=== PATIENT | female | born 1990 | race Caucasian/White ===

== ENCOUNTER → 2016-12-15 | Outpatient (CLI) | payer BC ==
--- NOTE | 2016-12-16 07:49 | USB ---
Reason for exam: clinical finding. Indicated problem(s): pain in the left breast. Physical Findings: Nurse Summary: Patient complains of left breast upper outer quadrant pain and lump x 2 months (nurse fina). US Breast LT Left breast ultrasound includes all four quadrants, the retroareolar region and axilla. Finding demonstrates no cystic or solid lesion seen. These results were verbally communicated with the patient and result sheet given to the patient on 12/15/16. ASSESSMENT: Negative, BI-RAD 1 RECOMMENDATION: Clinical management of the left breast. Manage on a clinical basis with regard to palpable and pain.
== END | disposition home or self-care (01) ==
LOC: RADUSWWP 15:01
PROVIDERS: ATTEND Obstetrics & Gynecology
DX: N64.4 Mastodynia (principal)

== ENCOUNTER → 2017-05-25 | Outpatient (CLI) | payer BC ==
[2017-05-25 13:20] VITALS: BMI 32.3
== END | disposition home or self-care (01) ==
LOC: MNTWWP 12:56
PROVIDERS: ATTEND Family Medicine
DX: K90.0 Celiac disease (principal)
CPT/HCPCS: 97802

== ENCOUNTER → 2017-08-09 | Outpatient (CLI) | payer BC ==
--- NOTE | 2017-08-09 22:24 | MR ---
MR brain without contrast HISTORY: Dizziness and giddiness, headaches Multiplanar multisequence imaging through the brain No comparisons There is no restricted diffusion. There is no hemorrhage or hydrocephalus. Normal vascular flow voids are noted. Cerebellopontine angles, corpus callosum, pituitary, cervical medullary junction are norm al. The orbits show symmetric appearance. Inflammatory changes present within the ethmoid air cells, sphenoid sinus and maxillary sinus. Brain signal is maintained. IMPRESSION: Sinus disease.
== END ==
LOC: RADMRIMAIN 21:16
PROVIDERS: ATTEND Family Medicine
DX: J32.9 Chronic sinusitis, unspecified (principal)
CPT/HCPCS: 70551

== ENCOUNTER → 2018-11-05 | Outpatient (CLI) | payer BC ==
--- NOTE | 2018-11-06 09:09 | ECHOF ---
Referral Reason:R00.2 palpitations MEASUREMENTS -------- HEIGHT: 154.9 cm WEIGHT: 68.0 kg BP: RVIDd: 2.1 cm (< 3.3) IVSd: 1.1 cm (0.6 - 1.1) LVIDd: 4.1 cm (3.9 - 5.3) LVPWd: 1.0 cm (0.6 - 1.1) IVSs: 1.6 cm LVIDs: 2.2 cm LVPWs: 1.7 cm LAESV Index (A-L): 23.55 ml/m Ao Diam: 2.6 cm (2.0 - 3.7) AV Cusp: 1.6 cm (1.5 - 2.6) LA Diam: 2.9 cm (2.7 - 3.8) EPSS: 0.1 cm MV E Bright: 1.00 m/s MV DecT: 193 ms MV A Bright: 0.51 m/s MV E/A Ratio: 1.94 RAP: 5.00 mmHg RVSP: 20.41 mmHg MV EF SLOPE: 117.78 mm/s (70 - 150) MV EXCURSION: 1.92 cm (> 18.000) FINDINGS -------- Sinus rhythm. The left ventricular size is normal. Left ventricular wall thickness is normal. There is normal g lobal left ventricular contractility. Overall left ventricular systolic function is normal with, an EF between 60 - 65 %. The diastolic filling pattern is normal for the age of the patient. The right ventricle is normal in size. Left atrium is normal size by volume. The right atrial size is normal. Interatrial and interventricular septum intact. The aortic valve is trileaflet and appears structurally normal. There is no evidence of aortic regu rgitation. There is no evidence of aortic stenosis. There is trace to mild mitral regurgitation. Trace tricuspid regurgitation present. There is no evidence of pulmonary hypertension. The right ventricular systolic pressure, as measured by Doppler, is 20.41mmHg. Trace/mild (physiologic) pulmonic regurgitation. The aortic root size is normal. The inferior vena cava was not well visualized. There is no pericardial effusion. CONCLUSIONS -------- 1. Sinus rhythm. 2. The left ventricular size is normal. 3. Left ventricular wall thickness is normal. 4. There is normal global left ventricular contractility. 5. Overall left ventricular systolic function is normal with, an EF between 60 - 65 %. 6. The diastolic filling pattern is normal for the age of the patient. 7. The right ventricle is normal in size. 8. Left atrium is normal size by volume. 9. The right atrial size is normal. 10. Interatrial and interventricular septum intact. 11. The aortic valve is trileaflet and appears structurally normal. 12. There is no evidence of aortic regurgitation. 13. There is no evidence of aortic stenosis. 14. There is trace to mild mitral regurgitation. 15. Trace tricuspid regurgitation present. 16. There is no evidence of pulmonary hypertension. 17. The right ventricular systolic pressure, as measured by Doppler, is 20.41mmHg. 18. Trace/mild (physiologic) pulmonic regurgitation. 19. The aortic root size is normal. 20. The inferior vena cava was not well visualized. 21. There is no pericardial effusion. [employer]IC: Elizabeth Booth RDCS
== END | disposition home or self-care (01) ==
LOC: RADECHMAIN 13:02
PROVIDERS: ATTEND Family Medicine
DX: I34.0 Nonrheumatic mitral (valve) insufficiency (principal)
CPT/HCPCS: 93306

== ENCOUNTER 2019-03-21 11:08 | Emergency (ER) | payer BC ==
[2019-03-21 11:46] VITALS: TEMP 98.3
[2019-03-21 15:09] LABS: Basophils % (A) 0 %; Eosinophils % (A) 0 %; HCT 36.5 % (34.0-46.0); HGB 12.5 gm/dL (11.4-16.0); Lymphocytes # (A) 1.3 k/uL (1.0-4.8); Lymphocytes % (A) 12 %; MCH 29.9 pg (25.0-35.0); MCHC 34.2 g/dL (31.0-37.0); MCV 87.6 fL (80.0-100.0); Mean Platelet Volume 9.7; Monocytes # (A) 0.3 k/uL (0-1.0); Monocytes % (A) 2 %; Neutrophils % (A) 84 %; Platelet Count 191 k/uL (150-450); RBC 4.17 m/uL (3.80-5.40); WBC 10.6 k/uL (3.8-10.6)
[2019-03-21 15:13] LABS: Appearance,Urine Clear (Clear); Bilirubin,Urine Negative (Negative); Blood,Urine Negative (Negative); Color,Urine Light Yellow; Glucose,Urine (UA) Negative (Negative); Ketones,Urine 2+ (Negative); Leukocyte Esterase,Urine Negative (Negative); Nitrite,Urine Negative (Negative); Protein,Urine Negative (Negative); Specific Gravity,Urine 1.008 (1.001-1.035); Urobilinogen,Urine <2.0 mg/dL (<2.0)
[2019-03-21 15:18] LABS: ALT 13 U/L (4-34); AST 24 U/L (14-36); African American GFR (CKD) >90 (>60 ml/min/1.73 sqM); Alkaline Phosphatase 58 U/L (38-126); Anion Gap 7 mmol/L; Blood Urea Nitrogen 6 mg/dL (7-17); Calcium 9.4 mg/dL (8.4-10.2); Carbon Dioxide 23 mmol/L (22-30); Chloride 107 mmol/L (98-107); Glucose 82 mg/dL (74-99); Non-African American GFR(CKD) >90 (>60 ml/min/1.73 sqM); Sodium 137 mmol/L (137-145); Total Bilirubin 0.4 mg/dL (0.2-1.3); Total Protein 7.2 g/dL (6.3-8.2)
--- NOTE | 2019-03-21 15:18 | ED ---
General Adult HPI - General Chief complaint: Dizziness Stated complaint: 20wks preg, dizzy Source: patient Mode of arrival: ambulatory Limitations: no limitations - History of Present Illness Initial comments: The patient is a 29-year-old female with past medical history of celiac disease who presents to the emergency room and with reported presyncopal sensation. She is currently 20 weeks . She states that over the past 2 weeks she has had intermittent episodes of lightheadedness. She will get short of breath and had palpitations. She will rest and the sensation will go away. It was infrequent until recently. States that she had multiple episodes today. Admits to eating and drinking. Denies any fevers or chills. No chest pain. Denies shortness of breath currently. No history of DVT or PE. Denies any abdominal pain. No vaginal bleeding or discharge. She had similar symptoms last summer. She wore a Holter monitor and had an echo. She states that everything was normal and the symptoms ended up stopping. She denies any issues with the pr evious . No recent medication changes. Denies dysuria, hematuria or difficult voiding. Denies that her symptoms are positional in nature. No family history of cardiac disease. There are no other alleviating, precipitating or modifying factors - Related Data Home Medications Medication Instructions Recorded Confirmed Doxylamine Succinate [Unisom] 1 tab PO DAILY 03/21/19 03/21/19 Pnv No.95/Ferrous Fum/Folic AC 1 tab PO DAILY 03/21/19 03/21/19 [ Multivitamin Tablet] Allergies Allergy/AdvReac Type Severity Reaction Status Date / Time No Known Allergies Allergy Verified 03/21/19 17:07 Review of Systems ROS Statement: Those systems with pertinent positive or pertinent negative responses have been documented in the HPI. ROS Other: All systems not noted in ROS Statement are negative. Past Medical History Past Medical History: No Reported History History of Any Multi-Drug Resistant Organisms: None Reported Past Surgical History: Section Past Psychological History: No Psychological Hx Reported Smoking Status: Never smoker Past Alcohol Use History: None Reported Past Drug Use History: None Reported General Exam Limitations: no limitations Course Vital Signs 03/21/19 03/21/19 03/21/19 11:43 13:00 14:00 Temperature 98.3 F Pulse Rate 101 H Pulse Rate [ Left Sitting Radial] Pulse Rate [ Left Standing Radial] Pulse Rate [ Left Supine Radial] Respiratory 19 20 20 Rate Blood Pressure 126/82 Blood Pressure [Left Arm Sitting] Blood Pressure [Left Arm Standing] Blood Pressure [Left Arm Supine] O2 Sat by Pulse 100 Oximetry 03/21/19 03/21/19 03/21/19 14:16 15:41 16:39 Temperature Pulse Rate 77 77 Pulse Rate [ 96 Left Sitting Radial] Pulse Rate [ 100 Left Standing Radial] Pulse Rate [ 98 Left Supine Radial] Respiratory 18 20 Rate Blood Pressure 118/76 109/77 Blood Pressure 121/81 [Left Arm Sitting] Blood Pressure 120/78 [Left Arm Standing] Blood Pressure 112/73 [Left Arm Supine] O2 Sat by Pulse 100 100 Oximetry EKG Findings - EKG Comments: EKG Findings:: EKG demonstrates normal sinus rhythm with a ventricular rate of 78. DE interval 148. QRS 80. QTC of 430. No acute ST segment elevations or depressions concerning for ischemic changes Medical Decision Making - Medical Decision Making Upon arrival the patient was placed into room 18. A thorough history and physical exam was performed. I did complete orthostatics which were negative. Laboratory studies were conducted and 12-lead EKG was performed. Laboratory studies are essentially unremarkable. Urinalysis shows 2+ ketones. I did p erform a bedside ultrasound which demonstrated an intrauterine with positive movement and heart tones. I discussed diagnosis, differential treatment options. This time the patient will be discharged and sent to labor and delivery for an NST. She needs to [facility] with [facility] for repeat Holter monitoring and echo. If the patient has any new or worsening symptoms she should return to the emergency room. The patient was then discharged upstairs to labor and delivery - Lab Data Result diagrams: 03/21/19 14:41 03/21/19 14:41 Lab Results 03/21/19 03/21/19 03/21/19 Range/Units 14:41 14:41 14:41 WBC 10.6 (3.8-10.6) k/uL RBC 4.17 (3.80-5.40) m/uL Hgb 12.5 (11.4-16.0) gm/dL Hct 36.5 (34.0-46.0) % MCV 87.6 (80.0-100.0) fL MCH 29.9 (25.0-35.0) pg MCHC 34.2 (31.0-37.0) g/dL RDW 13.0 (11.5-15.5) % Plt Count 191 (150-450) k/uL Neutrophils % 84 % Lymphocytes % 12 % Monocytes % 2 % Eosinophils % 0 % Basophils % 0 % Neutrophils # 9.0 H (1.3-7.7) k/uL Lymphocytes # 1.3 (1.0-4.8) k/uL Monocytes # 0.3 (0-1.0) k/uL Eosinophils # 0.0 (0-0.7) k/uL Basophils # 0.0 (0-0.2) k/uL Sodium 137 (137-145) mmol/L Potassium 4.0 (3.5-5.1) mmol/L Chloride 107 (98-107) mmol/L Carbon Dioxide 23 (22-30) mmol/L Anion Gap 7 mmol/L BUN 6 L (7-17) mg/dL Creatinine 0.47 L (0.52-1.04) mg/dL Est GFR (CKD-EPI)AfAm >90 (>60 ml/min/1.73 sqM) Est GFR (CKD-EPI)NonAf >90 (>60 ml/min/1.73 sqM) Glucose 82 (74-99) mg/dL Calcium 9.4 (8.4-10.2) mg/dL Total Bilirubin 0.4 (0.2-1.3) mg/dL AST 24 (14-36) U/L ALT 13 (4-34) U/L Alkaline Phosphatase 58 (38-126) U/L Troponin I <0.012 (0.000-0.034) ng/mL Total Protein 7.2 (6.3-8.2) g/dL Albumin 4.0 (3.5-5.0) g/dL Urine Color Urine Appearance (Clear) Urine pH (5.0-8.0) Ur Specific [place] (1.001-1.035) Urine Protein (Negative) Urine Glucose (UA) (Negative) Urine Ketones (Negative) Urine Blood (Negative) Urine Nitrite (Negative) Urine Bilirubin (Negative) Urine Urobilinogen (<2.0) mg/dL Ur Leukocyte Esterase (Negative) 03/21/19 Range/Units 14:41 WBC (3.8-10.6) k/uL RBC (3.80-5.40) m/uL Hgb (11.4-16.0) gm/dL Hct (34.0-46.0) % MCV (80.0-100.0) fL MCH (25.0-35.0) pg MCHC (31.0-37.0) g/dL RDW (11.5-15.5) % Plt Count (150-450) k/uL Neutrophils % % Lymphocytes % % Monocytes % % Eosinophils % % Basophils % % Neutrophils # (1.3-7.7) k/uL Lymphocytes # (1.0-4.8) k/uL Monocytes # (0-1.0) k/uL Eosinophils # (0-0.7) k/uL Basophils # (0-0.2) k/uL Sodium (137-145) mmol/L Potassium (3.5-5.1) mmol/L Chloride (98-107) mmol/L Carbon Dioxide (22-30) mmol/L Anion Gap mmol/L BUN (7-17) mg/dL Creatinine (0.52-1.04) mg/dL Est GFR (CKD-EPI)AfAm (>60 ml/min/1.73 sqM) Est GFR (CKD-EPI)NonAf (>60 ml/min/1.73 sqM) Glucose (74-99) mg/dL Calcium (8.4-10.2) mg/dL Total Bilirubin (0.2-1.3) mg/dL AST (14-36) U/L ALT (4-34) U/L Alkaline Phosphatase (38-126) U/L Troponin I (0.000-0.034) ng/mL Total Protein (6.3-8.2) g/dL Albumin (3.5-5.0) g/dL Urine Color Light Yellow Urine Appearance Clear (Clear) Urine pH 6.0 (5.0-8.0) Ur Specific [place] 1.008 (1.001-1.035) Urine Protein Negative (Negative) Urine Glucose (UA) Negative (Negative) Urine Ketones 2+ H (Negative) Urine Blood Negative (Negative) Urine Nitrite Negative (Negative) Urine Bilirubin Negative (Negative) Urine Urobilinogen <2.0 (<2.0) mg/dL Ur Leukocyte Esterase Negative (Negative) Disposition Clinical Impression: Pre-syncope Disposition: HOME SELF-CARE Condition: Stable Instructions (If sedation given, give patient instructions): Dizziness (ED) Additional Instructions: Please follow-up with your primary care doctor in 2-4 days. Return to the emergency department for any new worsening symptoms Is patient prescribed a controlled substance at d/c from ED?: No Referrals: Gian Grider MD [Primary Care Provider] - 1-2 days Time of Disposition: 16:26
[2019-03-21 15:44] VITALS: PULSE 77
[2019-03-21 16:39] VITALS: BP 109/77; RESP 20
== END 2019-03-21 16:41 | disposition home or self-care (01) ==
LOC: EC 11:08
DX: O99.89 Other specified diseases and conditions complicating pregnancy, childbirth and the puerperium (principal); R55 Syncope and collapse; R42 Dizziness and giddiness; R06.02 Shortness of breath; Z3A.20 20 weeks gestation of pregnancy
CPT/HCPCS: 36415; 80053; 81003; 84484; 85025; 93005; 99284

== ENCOUNTER 2019-03-21 16:55 | Outpatient (CLI) | payer BC ==
[2019-03-21 17:47] VITALS: BP 128/62; PULSE 97; RESP 16; TEMP 97.9
--- NOTE | 2019-03-25 13:05 | P.MSEPDOC ---
Presenting Problems - Arrival Data Date of Arrival on Unit: 03/21/19 Time of Arrival on Unit: 16:55 Mode of Transport: Ambulatory - Complaint OB-Reason for Admission/Chief Complaint: Other Comment: pt sent from ER for OB clearance, pt seen for dizziness and nausea and cleared for d/c by ER Medical History - Information : 2 Para: 1 Term: 1 : 0 Abortions: Spontaneous or Elective: 0 Number of Living Children: 1 - Gestational Age Gestational Age by DAMEON (wks/days): 20 Weeks and 4 Days - History Complications: Prior Review of Systems - Review of Systems Constitutional: No problems Breast: No problems ENT: No problems Cardiovascular: No problems Respiratory: No problems Gastrointestinal: No problems Genitourinary: No problems Musculoskeletal: No problems Neurological: No problems, Dizziness Skin: No problems Comment: denies dizziness and nausea at this time Vital Signs - Temperature Temperature: 97.9 F Temperature Source: Temporal Artery Scan - Pulse Right Sitting Pulse Rate: 97 Pulse Assessment Method: Automatic Cuff - Respirations Respiratory Rate: 16 Oxygen Delivery Method: Room Air - Blood Pressure Right Arm Blood Pressure: 128/62 Blood Pressure Mean: 84 Blood Pressure Source: Automatic Cuff Medical Screen Scoring (Pre) - Cervical Exam Dilation: Exam Deferred Effacement: Exam Deferred Membranes: Intact - Uterine Contractions Frequency: N/A Duration: N/A Intensity: N/A - Maternal Vital Signs Maternal Temperature: N/A Maternal Blood Pressure: N/A Signs of Preeclampsia: N/A Maternal Respirations: N/A - Maternal Trauma Maternal Trauma: N/A - Assessment - Baby A Baseline FHR: 140 - Total Score - Baby A Total Score - Baby A: 0 - Total Score - Baby B Total Score - Baby B: 0 - Total Score - Baby C Total Score - Baby C: 0 - Level of Risk - Baby A Level of Risk - Baby A: Low (0-5) - Level of Risk - Baby B Level of Risk - Baby B: Low (0-5) - Level of Risk - Baby C Level of Risk - Baby C: Low (0-5) Physician Notification (Pre) - Physician Notified Physician Notified Date: 03/21/19 Physician Notified Time: 17:29 New Order Received: Yes (d/c home) Disposition - Disposition OB Disposition: Discharge to home, Written follow up instructions reviewed Discharge Date: 03/21/19 Discharge Time: 17:35 I agree with the RN Medical Screening Exam: Yes Risk & Benefit of care provided described in d/c instruction: Yes Diagnosis: DIZZINESS AND GIDDINESS
== END 2019-03-21 17:35 | disposition home or self-care (01) ==
LOC: FBPOP 16:55
PROVIDERS: ATTEND Obstetrics & Gynecology
DX: O99.89 Other specified diseases and conditions complicating pregnancy, childbirth and the puerperium (principal); R42 Dizziness and giddiness; Z3A.20 20 weeks gestation of pregnancy
CPT/HCPCS: 99213

== ENCOUNTER → 2019-04-19 | Outpatient (CLI) | payer BC ==
[2019-04-19 11:11] LABS: HCT 37.3 % (34.0-46.0); HGB 11.9 gm/dL (11.4-16.0); MCHC 32.1 g/dL (31.0-37.0); MCV 90.3 fL (80.0-100.0); Mean Platelet Volume 9.9; Platelet Count 162 k/uL (150-450); RBC 4.12 m/uL (3.80-5.40); RDW 13.4 % (11.5-15.5); WBC 9.9 k/uL (3.8-10.6)
== END | disposition home or self-care (01) ==
LOC: LABWHC1 09:39
PROVIDERS: ATTEND Obstetrics & Gynecology
DX: Z34.82 Encounter for supervision of other normal pregnancy, second trimester (principal)
CPT/HCPCS: 36415; 82950; 85027

== ENCOUNTER → 2019-07-29 | Outpatient (CLI) | payer BC | END | disposition home or self-care (01) | LOC: LABWHC1 10:41 | PROVIDERS: ATTEND Obstetrics & Gynecology | DX: Z11.59 Encounter for screening for other viral diseases (principal) ==

== ENCOUNTER 2019-07-30 06:07 | Inpatient (IN) | payer BC ==
[2019-07-29 12:06] VITALS: BMI 36.6
--- NOTE | 2019-07-29 16:58 | P.HPOB ---
History of Present Illness H&P Date: 07/29/19 Chief Complaint: Repeat cesearan section This patient is a pleasant 29 yr female EDC 08/04/2019 estimated gestational age 39 2/7 weeks who presents to L&D for repeat C/S. Patient had a previous C/S for postdates failure to progress. She desires a repeat C/S. has been uncomplicated. Her BP was low at 23 weeks and her PCP did send her to cardiology but negative evaluation. Also had Influenza A at 27 weeks. Review of Systems Genitourinary: Reports Menstruation: Reports amenorrhea Past Medical History Past Medical History: Pneumonia Additional Past Medical History / Comment(s): Hx vertigo. Pneumonia 03/2019, also flu. currently. History of Any Multi-Drug Resistant Organisms: None Reported Past Surgical History: Section Past Anesthesia/Blood Transfusion Reactions: Motion Sickness Smoking Status: Never smoker Past Alcohol Use History: None Reported Past Drug Use History: None Reported - Past Family History Father Family Medical History: Cancer Additional Family Medical History / Comment(s): testicular/prostate cancer Medications and Allergies Home Medications Medication Instructions Recorded Confirmed Type Pnv No.95/Ferrous Fum/Folic AC 2 tab PO DAILY 03/21/19 07/29/19 History [ Multivitamin Tablet] Allergies Allergy/AdvReac Type Severity Reaction Status Date / Time gluten Allergy Nausea & Verified 07/29/19 11:52 Vomiting & Diarrhea wheat Allergy Nausea & Verified 07/29/19 11:52 Vomiting & Diarrhea Exam Intake and Output 07/29/19 07/29/19 07/29/19 06:59 14:59 22:59 Other: Weight 87.997 kg - OBG Physical Exam Vulva: both: normal Vagina: normal moisture, no discharge Cervix: no lesion, no discharge Uterus: enlarged (Fundal height is 40cm) Results Labs: O positive, Rubella Immune, RPR-HepB neg, GBS negative. Ultrasounds have been normal. Assessment and Plan Assessment: This is a pleasant 29 yr female 39 2/7 weeks gestation who is presenting for a repeat C/S. I have discussed this surgery and risks: infection, bleeding, possible injury to bowel/bladder/vessels and/or other organs. She understands risk of DVT/PE. All of her questions have been answered and a written consent obtained. (1) 39 weeks gestation of Status: Acute Code(s): Z3A.39 - 39 WEEKS GESTATION OF SNOMED Code(s): 37737561 (2) Previous delivery affecting Status: Acute Code(s): O34.219 - MATERNAL CARE FOR UNSP TYPE SCAR FROM PREVIOUS DEL SNOMED Code(s): 071032502
[2019-07-30] MEDS ORDERED: CITRIC ACID-SODIUM CITRATE 15 ML CUP PO ONE (06:13)
[2019-07-30] MEDS ORDERED: LACTATED RINGERS 1,000 ML IV SCH (06:13)
[2019-07-30] MEDS ORDERED: LACTATED RINGERS 1,000 ML IV ONE (06:13)
[2019-07-30 06:52] LABS: Basophils % (A) 0 %; Eosinophils # (A) 0.1 k/uL (0-0.7); Eosinophils % (A) 1 %; HCT 37.4 % (34.0-46.0); HGB 12.4 gm/dL (11.4-16.0); Lymphocytes % (A) 24 %; MCH 29.9 pg (25.0-35.0); MCHC 33.2 g/dL (31.0-37.0); MCV 90.3 fL (80.0-100.0); Mean Platelet Volume 13.7; Monocytes # (A) 0.4 k/uL (0-1.0); Monocytes % (A) 5 %; Neutrophils # (A) 5.7 k/uL (1.3-7.7); Neutrophils % (A) 69 %; Platelet Count 113 k/uL (150-450); RBC 4.14 m/uL (3.80-5.40); RDW 14.5 % (11.5-15.5); WBC 8.3 k/uL (3.8-10.6)
[2019-07-30] MEDS ORDERED: MORPHINE SULFATE (PF) 0.3 MG/0.3 ML SYR ONE (07:47)
[2019-07-30] MEDS ORDERED: ONDANSETRON 4 MG/2 ML VIAL ONE (07:47)
[2019-07-30] MEDS ORDERED: KETOROLAC 30 MG/ML 1 ML VIAL ONE (07:47)
[2019-07-30] MEDS ORDERED: OXYTOCIN 10 UNIT/ML 1 ML VIAL ONE (07:47)
[2019-07-30] MEDS ORDERED: ONDANSETRON 4 MG/2 ML VIAL IVP PRN ×2 (08:45→08:51)
[2019-07-30] MEDS ORDERED: NALOXONE 0.4 MG/ML 1 ML VIAL IV PRN ×2 (08:45→08:51)
[2019-07-30] MEDS ORDERED: MORPHINE SULFATE 2 MG/ML SYRINGE IVP PRN (08:45)
--- NOTE | 2019-07-30 08:49 | P.OP ---
Date of Procedure: 07/30/19 Preoperative Diagnosis: #1: 39-2/7 weeks . #2: Previous section desires repeat Postoperative Diagnosis: Same Procedure(s) Performed: Repeat low transverse section Anesthesia: spinal Surgeon: Efraín Moody Service Desk Associate #1: Fern Jay Estimated Blood Loss (ml): 600 Pathology: none sent Condition: stable Disposition: observation Indications for Procedure: Please see dictated H&P for intimate details of this patient's admission. In brief summary this is a pleasant 29-year-old 2 para 1 female 39-2/7 weeks gestation who is admitted to labor and delivery for elective repeat section. Patient had a previous section for post dates and failure to progress as requested repeat at this time. Patient understands this surgery and risks and risks of infection, bleeding, possible injury bowel, bladder, vessels, and/or other organs. All the patient's questions are answered and written consent is obtained. Operative Findings: This is a vigorous viable female infant Apgars 8 and 9 delivery time was 0804 hrs. appears grossly normal. Uterus tubes and ovaries appear normal for term gestation. Description of Procedure: This patient is taken to the operating room. She had a Singh catheter placed to straight drain. After the appropriate timeout she sat up and spinal anesthesia is administered without incident. With an adequate level of anesthesia she has abdominal prep and drape. Scalpels and taken the previous Pfannenstiel incision is incised. A second scalpel is taken down the fascia the fascia scored with a knife. Fascial incision extended bilaterally using the Layne scissors. Fascia is then dissected sharply off the rectus muscles. Rectus muscles are the peritoneum was identified and entered sharply. Peritoneal incision extended superior and inferior without difficulty. Bladder blade is then placed. Bladder peritoneum was taken sharply off the lower uterine segment. Scalpels and taken low transverse uterine incision is made. Of note the lower uterine segment is somewhat thin but not terribly so. Using a hemostat I into the uterine cavity bluntly. There is loss of clear fluid. The uterine incision extended bluntly. 's head is then guided through the incision with fundal pressure. Mouth and nares are bulb suctioned. There is a loose nuchal cord which is reduced. Then have deliver the anterior posterior shoulder and rest this infant's body. This is a vigorous viable female Apgars 8 and 9 delivery time was 0804 hrs. After delivery of the the umbilical cord is doubly clamped and cut and appears to be trivascular. The is then handed off to the nurses in attendance. The placenta is manually extracted intact. Uterus then externalized and uterine incision demarcated with Jerry clamps. The uterine incision closed in 0 Vicryl running locked fashion 2 layers. Excellent hemostasis is noted. Parietal peritoneum was then closed using a 3-0 Vicryl. Inspection of the uterus shows normal tubes and ovaries. Excess fluid is removed from the abdomen and pelvis. Uterus placed back into the abdomen. Parietal peritoneum was then closed in 0 Vicryl running fashion. The rectus muscles are pressure 0 Vicryl interrupted fashion. Fascia is then closed using 0 PDS. Fascial incision is intact and hemostatic. Subcutaneous tissues and closed using a 3-0 Vicryl. Skin is and closed using dajuan. All counts correct 3. There are no complications. Infant and mother are taken to the birthing suite in satisfactory condition.
[2019-07-30] MEDS ORDERED: OXYTOCIN 20 UNITS/1000 ML NS 1,000 ML IV SCH (08:51)
[2019-07-30] MEDS ORDERED: IBUPROFEN 600 MG TAB PO PRN (08:51)
[2019-07-30] MEDS ORDERED: ZOLPIDEM 5 MG TAB PO PRN (08:51)
[2019-07-30] MEDS ORDERED: diphenhydrAMINE 25 MG CAP PO PRN (08:51)
[2019-07-30] MEDS ORDERED: ACETAMINOPHEN TAB 325 MG TAB PO PRN (08:51)
[2019-07-30] MEDS ORDERED: diphenhydrAMINE 50 MG/ML 1 ML VIAL IVP PRN (08:51)
[2019-07-30] MEDS ORDERED: SIMETHICONE 80 MG CHEWABLE PO PRN (08:51)
[2019-07-30] MEDS ORDERED: METOCLOPRAMIDE 5 MG/ML 2 ML VIAL IVP PRN (08:51)
[2019-07-30] MEDS ORDERED: LANOLIN CREAM 5 GM TUBE TOPICAL PRN (08:51)
[2019-07-30] MEDS ORDERED: HYDROcodone/APAP 5-325MG 1 EACH TAB PO PRN (08:51)
[2019-07-30] MEDS: SENNOSIDES-DOCUSATE SODIUM 1 EACH TAB PO SCH ×2 (12:15→21:33)
[2019-07-30] MEDS: LACTATED RINGERS 1,000 ML IV SCH ×2 (12:15→21:33)
[2019-07-30] MEDS: diphenhydrAMINE 50 MG/ML 1 ML VIAL IVP PRN ×2 (16:04→23:45)
[2019-07-30] MEDS: KETOROLAC 30 MG/ML 1 ML VIAL IVP PRN (23:45)
[2019-07-31] MEDS: LACTATED RINGERS 1,000 ML IV SCH ×3 (00:51→16:55)
[2019-07-31 01:45] LABS: HIV 2 AB Non-Reactive (Non-Reactive); HIV AB P24 Non-Reactive (Non-Reactive); HIV P24 AG Non-Reactive (Non-Reactive)
--- NOTE | 2019-07-31 06:24 | P.PNOBGPC ---
Subjective - Subjective Patient reports: Reports appetite normal, Reports pain well controlled, Reports ambulating normally : doing well Objective - Vital Signs Latest vital signs: Vital Signs Temp Pulse Resp BP Pulse Ox 07/31/19 05:02 16 07/31/19 04:00 98.1 F 68 16 115/78 96 07/31/19 01:42 16 07/30/19 23:04 98.5 F 77 16 124/81 96 07/30/19 21:20 16 07/30/19 20:23 97 07/30/19 20:00 99.1 F 72 16 130/84 97 07/30/19 18:00 16 07/30/19 17:46 98 07/30/19 16:00 97.9 F 70 15 137/77 07/30/19 13:00 16 07/30/19 12:00 98.0 F 68 16 127/80 96 07/30/19 11:46 16 96 07/30/19 10:31 97.1 F L 62 16 133/81 100 07/30/19 10:01 54 L 16 126/72 98 07/30/19 09:46 16 99 07/30/19 09:31 96.7 F L 81 16 118/79 99 07/30/19 09:16 63 16 143/89 98 07/30/19 09:01 67 17 124/65 95 07/30/19 08:46 64 17 117/60 96 07/30/19 08:31 96.5 F L 72 17 116/81 99 Intake and Output 07/30/19 07/30/19 07/31/19 14:59 22:59 06:59 Intake Total 1000 Output Total 936 143 3446 Balance 700 -300 -1800 Intake: IV 1000 Output: Urine 602 867 5820 Uretheral (Singh) 300 900 Other: Voiding Method Indwelling Catheter # Voids 0 - Exam Lungs: bilateral: normal Chest: Normal S1, Normal S2 Extremities: Present: normal Abdomen: Present: normal appearance, soft. Absent: distention, tenderness Incision: Present: normal, dry, intact Uterus: Present: normal, firm - Labs Labs: Abnormal Lab Results - Last 24 Hours (Table) 07/30/19 Range/Units 06:40 Plt Count 113 L (150-450) k/uL Assessment and Plan Assessment: day #1. Patient is resting without complaints. She has been unable to urinate and has had to be straight cathed several times. This most likely secondary to the Duramorph. Vital signs are stable and she is afebrile. Uterus is firm nontender and her incision is intact and dry. CBC is pending at this time. Plan today is to encourage her to ambulate, allow her to shower, check a CBC and continue to observe closely for urination, this should resolve as the Duramorph wears off. (1) 39 weeks gestation of Current Visit: No Status: Acute Code(s): Z3A.39 - 39 WEEKS GESTATION OF SNOMED Code(s): 91642707 (2) Previous delivery affecting Current Visit: No Status: Acute Code(s): O34.219 - MATERNAL CARE FOR UNSP TYPE SCAR FROM PREVIOUS DEL SNOMED Code(s): 509772986
[2019-07-31] MEDS: KETOROLAC 30 MG/ML 1 ML VIAL IVP PRN ×2 (06:30→19:11)
[2019-07-31 06:44] LABS: HGB 11.5 gm/dL (11.4-16.0); MCH 28.8 pg (25.0-35.0); MCHC 31.9 g/dL (31.0-37.0); MCV 90.5 fL (80.0-100.0); Mean Platelet Volume 13.7; Platelet Count 90 k/uL (150-450); RBC 3.98 m/uL (3.80-5.40); RDW 14.4 % (11.5-15.5); WBC 12.6 k/uL (3.8-10.6)
[2019-07-31 07:10] LABS: Lymphocytes # (M) 1.01 k/uL (1.0-4.8); Neutrophils # (M) 11.09 k/uL (1.3-7.7); Neutrophils % (M) 88 %; Nucleated Red Blood Cells 0 /100 WBC (0-0); Total Cells Counted 100
[2019-07-31 07:11] LABS: Large Platelets Present
--- NOTE | 2019-07-31 07:24 | P.PN ---
Progress Note - Text Progress Note Date: 07/31/19 Postoperative day 1 status post section under spinal anesthesia, and i ntrathecal morphine given for postoperative analgesia, patient doing well, there is no anesthesia related complications, Patient had no headache, vital signs stable , Assessment and plan= postop day 1 status post , doing well there is no anesthesia related complication.
[2019-07-31] MEDS: SENNOSIDES-DOCUSATE SODIUM 1 EACH TAB PO SCH ×2 (08:39→20:02)
[2019-07-31] MEDS: ACETAMINOPHEN TAB 325 MG TAB PO PRN ×3 (11:06→21:08)
[2019-07-31 20:04] VITALS: RESP 15
[2019-08-01] MEDS: ACETAMINOPHEN TAB 325 MG TAB PO PRN ×3 (01:24→08:38)
[2019-08-01] MEDS: LACTATED RINGERS 1,000 ML IV SCH ×2 (01:40→09:21)
--- NOTE | 2019-08-01 06:17 | P.PNOBGPC ---
Subjective - Subjective Patient reports: Reports appetite normal, Reports voiding normally, Reports pain well controlled, Reports ambulating normally : doing well Objective - Vital Signs Latest vital signs: Vital Signs Temp Pulse Resp BP Pulse Ox 08/01/19 00:00 97.7 F 82 15 131/84 97 07/31/19 20:03 98.0 F 80 15 125/81 97 07/31/19 16:00 98.1 F 64 16 131/86 96 07/31/19 10:00 16 07/31/19 08:00 97.8 F 77 16 113/76 97 Intake and Output 07/31/19 07/31/19 08/01/19 14:59 22:59 06:59 Output Total 850 Balance -850 Output: Urine 850 Other: # Voids 1 - Exam Lungs: bilateral: normal Chest: Normal S1, Normal S2 Extremities: Present: normal Abdomen: Present: normal appearance, soft. Absent: distention, tenderness Incision: Present: normal, dry, intact Uterus: Present: normal, firm - Labs Labs: Abnormal Lab Results - Last 24 Hours (Table) 07/31/19 Range/Units 06:27 WBC 12.6 H (3.8-10.6) k/uL Plt Count 90 L (150-450) k/uL Neutrophils # (Manual) 11.09 H (1.3-7.7) k/uL Assessment and Plan Assessment: Postoperative day #2. Patient is resting without new complaints. Vital signs are stable and she is afebrile. Uterus is firm nontender and her incision is intact and dry. CBC yesterday showed her platelets to be 90. Repeat today is p ending. Patient is having normal lochia. Patient's tolerating regular diet, ambulating, urinating without difficulty. She wishes to go home today. Plan is to continue routine care, check CBC and most likely discharge home today. (1) 39 weeks gestation of Current Visit: No Status: Acute Code(s): Z3A.39 - 39 WEEKS GESTATION OF SNOMED Code(s): 25641514 (2) Previous delivery affecting Current Visit: No Status: Acute Code(s): O34.219 - MATERNAL CARE FOR UNSP TYPE SCAR FROM PREVIOUS DEL SNOMED Code(s): 612251767
[2019-08-01 06:20] LABS: HCT 36.6 % (34.0-46.0); HGB 11.8 gm/dL (11.4-16.0); MCH 29.1 pg (25.0-35.0); MCHC 32.2 g/dL (31.0-37.0); MCV 90.2 fL (80.0-100.0); Mean Platelet Volume 12.8; Platelet Count 107 k/uL (150-450); RBC 4.05 m/uL (3.80-5.40); RDW 14.4 % (11.5-15.5); WBC 11.1 k/uL (3.8-10.6)
--- NOTE | 2019-08-01 06:26 | P.DS ---
Providers Date of admission: 07/30/19 06:07 Expected date of discharge: 08/01/19 Attending physician: Efraín Moody Primary care physician: Stated None - Discharge Diagnosis(es) (1) 39 weeks gestation of Current Visit: No Status: Acute (2) Previous delivery affecting Current Visit: No Status: Acute Hospital Course: Please see dictated H&P for intimate details of this patient's admission. Brief summary this pleasant 29-year-old 2 para 1 female 39-2/7 weeks gestation is admitted to labor and delivery for elective repeat section. Of note on admission patient's platelets were 113 and she did not have any previous platelet problems throughout her . Patient underwent a repeat low transverse section for viable female infant. Please see dictated delivery note. On postoperative day #1 her platelets were 90. Patient is ambulating without difficulty. Patient did have some urinary retention from her Duramorph but this resolved. Postoperative and 2 she continues to well was felt stable for discharge home. At the time of discharge her platelets are pending but most likely will repeat in 1 week as an outpatient. Procedures: Repeat low transverse section Patient Condition at Discharge: Good Plan - Discharge Summary Discharge Rx Participant: Yes New Discharge Prescriptions: New RX: Ibuprofen [Motrin] 600 mg PO Q6HR PRN #40 tab PRN Reason: Mild Pain Or Fever >= 100.5 RX: HYDROcodone/APAP 5-325MG [[place] 5-325] 1 each PO Q4HR PRN #18 tab PRN Reason: Moderate Pain No Action Pnv No.95/Ferrous Fum/Folic AC [ Multivitamin Tablet] 2 tab PO DAILY Discharge Medication List Pnv No.95/Ferrous Fum/Folic AC [ Multivitamin Tablet] 2 tab PO DAILY 03/21/19 [History] RX: HYDROcodone/APAP 5-325MG [[place] 5-325] 1 each PO Q4HR PRN #18 tab 08/01/19 [Rx] RX: Ibuprofen [Motrin] 600 mg PO Q6HR PRN #40 tab 08/01/19 [Rx] Follow up Appointment(s)/Referral(s): Efraín Moody MD [STAFF PHYSICIAN] - 08/08/19 9:45 am (Please see me on September 09 at 10:45 AM for a appointment as well.) Patient Instructions/Handouts: (DC) Activity/Diet/Wound Care/Special Instructions: No heavy lifting or strenuous activity for 6 weeks. No intercourse or anything per vagina for 6 weeks. Please call for any fever, chills, excessive vaginal bleeding, and/or abdominal pain. Discharge Disposition: HOME SELF-CARE
[2019-08-01 06:41] LABS: Eosinophils # (M) 0.44 k/uL (0-0.7); Lymphocytes # (M) 1.22 k/uL (1.0-4.8); Monocytes # (M) 0.22 k/uL (0-1.0); Neutrophils # (M) 9.21 k/uL (1.3-7.7); Neutrophils % (M) 83 %; Nucleated Red Blood Cells 0 /100 WBC (0-0); Total Cells Counted 100
[2019-08-01 06:42] LABS: Large Platelets Present
[2019-08-01 08:06] VITALS: BP 129/87; PULSE 71; TEMP 98.4
[2019-08-01] MEDS: SENNOSIDES-DOCUSATE SODIUM 1 EACH TAB PO SCH (08:38)
== END 2019-08-01 12:55 | disposition home or self-care (01) | DRG 788 ==
LOC: 4FBP 06:07
PROVIDERS: ADMIT Obstetrics & Gynecology; ATTEND Obstetrics & Gynecology
PROC: 10D00Z1 Extraction of Products of Conception, Low, Open Approach (ICD-10-PCS; principal; 2019-07-30 08:00)
DX: O34.211 Maternal care for low transverse scar from previous cesarean delivery (principal); N85.8 Other specified noninflammatory disorders of uterus; O69.81X0 Labor and delivery complicated by cord around neck, without compression, not applicable or unspecified; R33.0 Drug induced retention of urine; T40.2X5A Adverse effect of other opioids, initial encounter; Z3A.39 39 weeks gestation of pregnancy; Z37.0 Single live birth; Z79.899 Other long term (current) drug therapy; Z87.01 Personal history of pneumonia (recurrent); Z91.018 Allergy to other foods; Z80.42 Family history of malignant neoplasm of prostate; Z80.43 Family history of malignant neoplasm of testis
CPT/HCPCS: 85025; 86850; 86900; 86901; 87390